=== PATIENT | female | born 1945 | race Caucasian/White ===

== ENCOUNTER 2022-02-03 19:04 | Inpatient (IN) | payer MEDICARE, OTHER ==
[~2022-02-03] VITALS: Ht 162.6 cm; Wt 51.3 kg
--- NOTE | 2022-02-03 19:28 | NUR ---
Patient BIB [facility] from home for c/o weakness and unable to ambulate that started 2 days ago. Blood Sugar in the field was 180. Blood Pressure SALON PROFESSIONAL was 86/50.
[2022-02-03] MEDS ORDERED: METO-356 PO (19:29)
[2022-02-03] MEDS ORDERED: NAPR-1009 PO (19:29)
[2022-02-03] MEDS ORDERED: PANT40TA49 PO (19:29)
[2022-02-03] MEDS ORDERED: ALEN70TA80 PO (19:29)
[2022-02-03] MEDS ORDERED: ASPI81TA31 PO (19:29)
[2022-02-03] MEDS ORDERED: ROSU20TA2 PO (19:29)
[2022-02-03] MEDS ORDERED: FERR325T28 PO (19:29)
[2022-02-03] MEDS ORDERED: FOLI1TAB94 PO (19:29)
--- NOTE | 2022-02-03 19:53 | NUR ---
Dr. Bearden on bedside for MSE.
[2022-02-03 19:54] LABS: HEMATOCRIT 25.2 % (31.2-41.9); MEAN CORPUSCULAR HEMOGLOBIN 25.1 uug (24.7-32.8); MEAN CORPUSCULAR VOLUME 74.4 fL (75.5-95.3); PLATELET COUNT (AUTO) 130 K/uL (179-408)
[2022-02-03 20:01] LABS: CARBON DIOXIDE 25 mmol/L (21-32); CHLORIDE 92 mmol/L (98-107); CREATININE 0.8 mg/dL (0.6-1.3); GLUCOSE 163 mg/dL (74-106); POTASSIUM 3.1 mmol/L (3.5-5.1); UREA NITROGEN, BLOOD 19 mg/dL (7-18)
[2022-02-03 20:08] LABS: ALANINE AMINOTRANSFERASE 42 U/L (14-59); ALKALINE PHOSPHATASE 64 U/L (50-136); ASPARTATE AMINOTRANSFERASE 36 U/L (15-37); BILIRUBIN,DIRECT 0.2 mg/dL (0.0-0.2); BILIRUBIN,TOTAL 0.6 mg/dL (0.2-1.0); TOTAL PROTEIN, SERUM 6.1 g/dL (6.4-8.2)
[2022-02-03 20:09] LABS: ETHANOL < 3 MG/DL (0-0)
--- NOTE | 2022-02-03 20:11 | NUR ---
Pt taken to CT via transport.
[2022-02-03 20:13] LABS: THYROID STIMULATING HORMONE 1.166 mIU/mL (0.358-3.740)
--- NOTE | 2022-02-03 20:28 | NUR ---
Back from CT.
[2022-02-03] MEDS ORDERED: IV NORMAL SALINE 500 ML IV ONE (20:30)
[2022-02-03 21:12] LABS: *BILIRUBIN,URIN NEGATIVE (NEGATIVE); *BLOOD, URINE 2+ (NEGATIVE); *CLARITY,URINE CLEAR (CLEAR); *COLOR,URINE YELLOW (YELLOW); *KETONES,URINE NEGATIVE (NEGATIVE); *UROBILINOGEN,URINE 0.2 E.U./dl (NORMAL); LEUKOCYTE ESTERASE ,URINE NEGATIVE (NEGATIVE); NITRITE, URINE NEGATIVE (NEGATIVE); PH,URINE 5.5 (5.0-8.0); UGLUCOSE NEGATIVE (NEGATIVE)
--- NOTE | 2022-02-03 21:13 | NUR ---
In and out catheterization done to obtain urine. Patient with 100cc kerri color urine output.
[2022-02-03] MEDS: MAGNESIUM SULFATE/D5W 100 ML IV SCH ×2 (21:24→21:47)
[2022-02-03 21:39] LABS: BACTERIA,URINE FEW /HPF (NONE SEEN); SQUAMOUS EPITHELIAL CELL,UR FEW /HPF (NONE SEEN); WBC,URINE 0-3 /HPF (0-3)
--- NOTE | 2022-02-03 22:02 | NUR ---
Epic panel call placed, spoke to Magy, she stated she will get a hold of Dr. Cabezas for admitting.
[2022-02-03] MEDS ORDERED: CEFEPIME HCL 1 G VIAL ONE (22:06)
[2022-02-03] MEDS ORDERED: POTASSIUM CHLORIDE 50 ML ONE (22:13)
[2022-02-03] MEDS ORDERED: POTASSIUM CHLORIDE 100 ML ONE (22:15)
[2022-02-03] MEDS ORDERED: CEFEPIME HCL 1 G in IV DEXTROSE 5% 50 ML IV ONE (22:15)
--- NOTE | 2022-02-03 22:15 | NUR ---
Dr. Bearden on panel call with Dr. Cabezas. Patient accepted for admission to Telemetry unit, Dx. Gen. weakness.
[2022-02-03] MEDS: POTASSIUM CHLORIDE 50 ML IV SCH ×2 (22:42→23:42)
--- NOTE | 2022-02-03 23:25 | NUR ---
Report given to tele unit CAROLINA Starr.
--- NOTE | 2022-02-04 00:30 | NUR ---
Pt. admitted to telemetry unit, room 309, under care of Dr. Cabezas. Belongs List completed.
[2022-02-04 00:56] VITALS: BP 113/61
[2022-02-04] MEDS: POTASSIUM CHLORIDE 50 ML IV SCH ×6 (01:17→12:09)
[2022-02-04] MEDS ORDERED: ONDANSETRON 4 MG/2 ML VIAL IV PRN (01:30)
[2022-02-04] MEDS ORDERED: IV NS 1000 ML 1,000 ML IV PRN (01:30)
[2022-02-04] MEDS ORDERED: REMEDY ESSENTIAL ZINC PASTE 113 GM TP PRN (01:30)
--- NOTE | 2022-02-04 01:30 | NUR ---
Admitted patient to tele accompanied by ER nurse via gurney. Patient awake alert and oriented x 1-2, able to relate needs to staff. In no acute distress, respiration even and unlabored. Afebrile. Abdomen soft to touch, non distended. IV access on left AC G#20 intact and patent with on going Kcl 2nd bag. Initial and full body assessment done. Skin intact with old scabs in BLE. Belongings list filled up. Safety precautions initiated. Call light place within easy reach, oriented to room. All needs attended. Continue to monitor.
[2022-02-04] MEDS: ENOXAPARIN SODIUM 40 MG/0.4 ML DISP.SYRIN SQ SCH ×2 (02:38→21:15)
[2022-02-04 04:49] VITALS: BP 116/61
[2022-02-04] MEDS: ACETAMINOPHEN 325 MG TABLET PO PRN ×2 (04:52→12:14)
[2022-02-04 06:05] LABS: HEMATOCRIT 21.7 % (31.2-41.9); MEAN CORPUSCULAR HEMOGLOBIN 25.5 uug (24.7-32.8); MEAN CORPUSCULAR VOLUME 73.2 fL (75.5-95.3); PLATELET COUNT (AUTO) 93 K/uL (179-408)
[2022-02-04 06:08] LABS: BILIRUBIN,TOTAL 0.6 mg/dL (0.2-1.0); CREATININE 0.6 mg/dL (0.6-1.3); MAGNESIUM 2.2 mg/dL (1.8-2.4); PHOSPHOROUS 1.3 mg/dL (2.5-4.9); TOTAL PROTEIN, SERUM 5.4 g/dL (6.4-8.2)
[2022-02-04] MEDS: PANTOPRAZOLE SODIUM 40 MG VIAL IV SCH (06:09)
[2022-02-04 06:17] LABS: POTASSIUM 2.8 mmol/L (3.5-5.1)
--- NOTE | 2022-02-04 06:30 | NUR ---
Lab called, patient is noted with low potassium 2.8. DEMETRIUS Booth informed with new order to administer potassium 10 meq x 5 bags.
[2022-02-04] MEDS: ASPIRIN 81 MG TAB.CHEW PO SCH (08:26)
[2022-02-04] MEDS: FERROUS SULFATE 325 MG TABEC PO SCH ×3 (08:27→16:19)
[2022-02-04] MEDS: FOLIC ACID 1 MG TABLET PO SCH (08:27)
[2022-02-04] MEDS: METOPROLOL SUCCINATE XL 25 MG TAB.SR.24H PO SCH (08:37)
--- NOTE | 2022-02-04 08:37 | NUR ---
PATIENT WENT TO THE BATHROOM AND BECAME VERY DIAPHORETIC GOING BACK TO BED SBP 86/57 HR 94. METOPROLOL HELD AND CLOSELY MONITORED
[2022-02-04 09:00] VITALS: BP 92/57
--- NOTE | 2022-02-04 09:30 | NUR ---
PATIENT REMAINS ALERT AND ORIENTED X3 SBP 92/57, HR 90. 2DECHO DONE EF OF 60, DENIES CHEST PAIN, O2 SAT RA 96%. CONTINUE TELE MONITORING ORDERED
[2022-02-04 11:11] VITALS: BP 94/61
--- NOTE | 2022-02-04 12:00 | NUR ---
RESTING COMFORTABLY NO SS OF DISTRESS BUT C/O GENERALIZE PAIN RELIEVE WITH TYLENOL. SR ON MONITOR
[2022-02-04] MEDS ORDERED: ACYC400T19 PO (12:04)
--- NOTE | 2022-02-04 14:31 | NUR ---
SEEN BY DR SANTOYO FOR FOLLOW--UP MADE AWARE OF LABS LOW K, LOW SODIUM SEE NOTES
[2022-02-04 15:07] VITALS: BP 93/50
[2022-02-04] MEDS ORDERED: SODIUM PHOSPHATE MM 15 MMOL in IV NORMAL SALINE 250 ML IV ONE (16:00)
[2022-02-04] MEDS: ACYCLOVIR 200 MG CAPSULE PO SCH (16:19)
[2022-02-04] MEDS ORDERED: ACYCLOVIR 400 MG TABLET PO SCH (17:00)
--- NOTE | 2022-02-04 18:02 | NUR ---
MORE ALERT AND VERBALLY RESPONSIVE, GOOD APPETITE WITH DINNER, FAMILY AT BEDSIDE ALL SUPPORTIVE WITH CARE SR ON MONITOR
--- NOTE | 2022-02-04 18:14 | NUR ---
SEEN BY DR SOFIA FOR NEURO CONSULT SEE NOTES
--- NOTE | 2022-02-04 19:18 | NUR ---
Received patient in bed awake, alert and oriented x 1. Respiration even and unlabored, no noted acute distress. Skin is dry and warm to touch, afebrile. No signs of bleeding noted related to use of lovenox. Bed in locked and low position. Call light within reach.
[2022-02-04 19:50] VITALS: BP 108/71
[2022-02-04] MEDS ORDERED: IV NS + KCL 40 MEQ 1000 ML BAG IV ONE ×2 (20:30→21:15)
[2022-02-04] MEDS: ATORVASTATIN 40 MG TABLET PO SCH (20:48)
[2022-02-04] MEDS ORDERED: POTASSIUM CHLORIDE 40 MEQ in IV NS 1000 ML 1,000 ML IV ONE (21:22)
[2022-02-04] MEDS ORDERED: IV NS + KCL 40 MEQ 1000 ML BAG 1,000 ML IV ONE (22:54)
[2022-02-05 00:17] VITALS: BP 130/70
[2022-02-05 04:22] VITALS: BP 135/80
[2022-02-05] MEDS: ACETAMINOPHEN 325 MG TABLET PO PRN ×2 (05:55→17:18)
[2022-02-05] MEDS: PANTOPRAZOLE SODIUM 40 MG VIAL IV SCH (06:00)
--- NOTE | 2022-02-05 06:36 | NUR ---
Patient slept well, no complain pain/discomfort. No acute distress noted. Left antecubital IV access intact and patent with IVF infusing well. Needs attended and anticipated. Call light place within easy reach.
[2022-02-05 07:05] LABS: HEMATOCRIT 22.6 % (31.2-41.9); MEAN CORPUSCULAR HEMOGLOBIN 25.4 uug (24.7-32.8); MEAN CORPUSCULAR VOLUME 72.8 fL (75.5-95.3); PLATELET COUNT (AUTO) 104 K/uL (179-408)
[2022-02-05 07:15] LABS: CARBON DIOXIDE 24 mmol/L (21-32); CHLORIDE 101 mmol/L (98-107); CHOLESTEROL 112 mg/dL (<200); CREATININE 0.5 mg/dL (0.6-1.3); GLUCOSE 152 mg/dL (74-106); HDL CHOLESTEROL 12 mg/dL (40-60); MAGNESIUM 2.2 mg/dL (1.8-2.4); PHOSPHOROUS 1.3 mg/dL (2.5-4.9); POTASSIUM 3.5 mmol/L (3.5-5.1); TRIGLYCERIDES 136 MG/DL (30-150); UREA NITROGEN, BLOOD 12 mg/dL (7-18)
[2022-02-05] MEDS: FOLIC ACID 1 MG TABLET PO SCH (08:25)
[2022-02-05] MEDS: FERROUS SULFATE 325 MG TABEC PO SCH ×3 (08:25→17:04)
[2022-02-05] MEDS: ASPIRIN 81 MG TAB.CHEW PO SCH (08:25)
[2022-02-05] MEDS: ACYCLOVIR 200 MG CAPSULE PO SCH ×2 (08:25→17:06)
[2022-02-05] MEDS: METOPROLOL SUCCINATE XL 25 MG TAB.SR.24H PO SCH (08:30)
[2022-02-05 08:41] VITALS: BP 136/74
--- NOTE | 2022-02-05 11:30 | NUR ---
Md made aware of patient lethargy and unclear speech. Patient is also diaphoretic this am. no SOB or s/s of pain. Patient is easily woken, pupils equal but sluggish. Skin is pale. patient is able to drink water and tolerate some apple sauce but only few teaspoons due to lethargy. MD made aware and assessed patient. Family aware of patient health status.
[2022-02-05] MEDS ORDERED: POTASSIUM PHOSPHATE MM 15 MMOL in IV NORMAL SALINE 250 ML IV ONE (12:30)
[2022-02-05 16:16] VITALS: BP 130/64
--- NOTE | 2022-02-05 19:37 | NUR ---
Patient remains lethargic with unclear speech. Skin is diaphoretic and pale. Dr. Dempsey made aware no further IV fluids, requested IV fluids from MD, patient is not eating or drinking. telemetry remains controlled AFIB, pulse 90's.
--- NOTE | 2022-02-05 19:40 | NUR ---
RECEIVED PATIENT IN BED, LETHARGIC AND UNCLEAR SPEECH. NOTED TO BE MUMBLING INCOHERENTLY. AWAKEN BY NAME AND LIGHT TOUCH. PT IS ON TELEMETRY, SHOWING SINUS RHYTHM. AWAIT MD DUMONT TO RESPOND REGARDING IV FLUIDS ORDER PATIENT HAS NOT BEEN EATING OR DRINKING. SAFETY PRECAUTIONS INITIATED. MONITORED CLOSELY.
[2022-02-05] MEDS: ATORVASTATIN 40 MG TABLET PO SCH (20:38)
[2022-02-05] MEDS: ENOXAPARIN SODIUM 40 MG/0.4 ML DISP.SYRIN SQ SCH (20:38)
[2022-02-05 20:43] VITALS: BP 109/65
--- NOTE | 2022-02-05 22:00 | NUR ---
PATIENT ATTACHED TO O2 VIA NASAL CANNULA, DELIVERING 2L, D/T O2 SAT OF 93%.
[2022-02-06] VITALS (8 sets, daily range): BP systolic 104–148; BP diastolic 59–78
[2022-02-06] MEDS: PANTOPRAZOLE SODIUM 40 MG VIAL IV SCH (06:14)
[2022-02-06 06:38] LABS: ALANINE AMINOTRANSFERASE 50 U/L (14-59); ALKALINE PHOSPHATASE 67 U/L (50-136); ASPARTATE AMINOTRANSFERASE 34 U/L (15-37); BILIRUBIN,TOTAL 0.8 mg/dL (0.2-1.0); CARBON DIOXIDE 25 mmol/L (21-32); CHLORIDE 104 mmol/L (98-107); CREATININE 0.5 mg/dL (0.6-1.3); GLUCOSE 125 mg/dL (74-106); MAGNESIUM 2.4 mg/dL (1.8-2.4); PHOSPHOROUS 1.8 mg/dL (2.5-4.9); POTASSIUM 3.5 mmol/L (3.5-5.1); TOTAL PROTEIN, SERUM 5.9 g/dL (6.4-8.2); UREA NITROGEN, BLOOD 16 mg/dL (7-18)
--- NOTE | 2022-02-06 06:43 | NUR ---
PATIENT SLEPT THROUGH THE NIGHT. AWAKEN WHEN CALLED BY NAME AND WITH LIGHT TOUCH. INCOHERENT MUMBLING NOTED. ON 2L O2 VIA NASAL CANNULA. IV ACCESS PATENT AND INTACT. NO IVF ORDERED. ORAL CARE DONE, SAFETY MEASURES MAINTAINED.
--- NOTE | 2022-02-06 08:00 | NUR ---
PATIENT SEEN AND EXAMINED BY PHYSICAL THERAPY WITH POOR ENDURANCE PATIENT UNABLE TO FOLLOW COMMANDS SHE IS CONFUSED AND DISORIENTED MUMBLES WHEN SPOKEN TO ALL NEEDS ANTICIPATED AND SATISFIED MAX ASSIST FOR ALL ADL.ON O2 AT 2L/M WITH NO SOB AT THIS TIME DIFFICULTY FEEDING HER KEEPS FOOD IN HER MOUTH AND NOT SWALLOWING WILL CONTINUE TO OBSERVE.
[2022-02-06] MEDS: FOLIC ACID 1 MG TABLET PO SCH (08:44)
[2022-02-06] MEDS: ASPIRIN 81 MG TAB.CHEW PO SCH (08:44)
[2022-02-06] MEDS: FERROUS SULFATE 325 MG TABEC PO SCH ×3 (08:44→16:12)
[2022-02-06] MEDS: ACYCLOVIR 200 MG CAPSULE PO SCH ×2 (08:44→16:13)
[2022-02-06] MEDS: METOPROLOL SUCCINATE XL 25 MG TAB.SR.24H PO SCH (08:45)
--- NOTE | 2022-02-06 11:06 | NUR ---
GOT AN ORDER FOR SWALLOW EVAL AND HAD THE SLT SEE PATIENT AND SHE STATED THAT PATIENT IS NOT AWAKE ENOUGH TO EAT STATED TO KEEP PATIENT NPO FOR NOW DR AVERY HERE AND NOTIFIED AND HE STATED WILL CALL PATIENTS DAUGHTER AND TALK TO HER TO DETERMINE NEXT PLAN OF CARE.
--- NOTE | 2022-02-06 11:26 | NUR ---
PATIENT SEEN BY DR KENYA SANTOYO AND HE CALLED AND SPOKE WITH PATIENTS DAUGHTER WITH NEW ORDERS AND NOTED
[2022-02-06] MEDS: IV D5/ 0.9% NACL 1,000 ML IV PRN (11:36)
[2022-02-06] MEDS ORDERED: POTASSIUM PHOSPHATE MM 15 MMOL in IV NORMAL SALINE 250 ML IV ONE (13:30)
--- NOTE | 2022-02-06 16:30 | NUR ---
NEW ORDER RECEIVED FROM DR SOFIA FOR MRI BRAIN WITHOUT CONTRAST BUT PATIENT ALREADY HAS AN ORDER FOR MRI OF THE BRAIN WITH AND WITHOUT CONTRAST MD STATED TO GO WITH THE PREVIOUS ORDER OF WITH AND WITHOUT CONTRAST AND NOTED PATIENTS SON AND DAUGHTER IN LAW PRASANNA HERE AND FILLED OUT THE MRI AND CONTRAST CHECK LIST AND FILED AWAITING FOR THE LOBSTER MAN TO CALL FOR THE APPOINTMENT.
--- NOTE | 2022-02-06 17:00 | NUR ---
AWAKE ATTEMPTS TO RESPOND WHEN SPOKE TO BUT HER SPEECH IS INCOHERENT MOVING LEFT ARM AND LEG BUT WHEN ASKED TO MOVE HER RIGHT ARM SHE IS UNABLE VERY FLACCID FACIAL HAS NO DROOP AT THIS TIME WILL CONTINUE TO OBSERVE.
--- NOTE | 2022-02-06 17:40 | NUR ---
CALL RECEIVED FROM DR PERRY WITH ORDERS FOR CTA ANGIO CT HEAD AND NECK BUT PATIENT IS ALLERGIC TO IODINE MD NOTIFIED WITH ORDER TO JUST DO CT HEAD AND NOTED.
--- NOTE | 2022-02-06 18:51 | NUR ---
RESULT OF CT HEAD RECEIVED AND CALLED TO DR DOMINGUEZ WITH NO NEW ORDERS AT THIS TIME STATED WILL TALK WITH DR ZAMBRANO AND WILL LET US KNOW.
--- NOTE | 2022-02-06 19:05 | NUR ---
CALL DR KENYA SANTOYO SPOKE WITH HIM RE RESULT OF THE CT HEAD WITH ORDER TO TRANSFER PATIENT TO ICU FOR CONTINUING CARE PREDATORY GAME HUNTER NOTIFIED OF THE NEED TO TRANSFER PATIENT TO ICU
--- NOTE | 2022-02-06 19:30 | NUR ---
received patient from [facility] telemetry /medical surgical patient no upgraded to ccu status , for brain hemorrhage plus infarct ct of the head without contrast .patient now in ccu1. spoked to patients son and daughter in law made aware patient is now in ccu c/o of patient changed in mental condition and also because of the ct of the brain results ,as per son :JULIA is on the phone now to talked with them advised son he can call us back here in ccu .
--- NOTE | 2022-02-06 19:45 | NUR ---
CALLED PATIENTS SON MAGNO AND MESSAGE LEFT ON HIS VOICE MAIL THAT PATIENT WILL BE TRANSFERING TO ICU FOR HIGHER LEVEL OF CARE.
--- NOTE | 2022-02-06 20:15 | NUR ---
patient open eyes to name able to moved left upper and left lower extremities slow and weak ,right upper and lower extremities flaccid withdraws to pain .pupils 3mm sluggishly reactive . no s/s of pain .
--- NOTE | 2022-02-06 20:30 | NUR ---
increase 02 nasal cannula to 3 liters, with 02 nasal cannula at 2 liters pts saturation only at 92% ,no at 3 liters 93% will continue to monitor .
[2022-02-06] MEDS: ATORVASTATIN 40 MG TABLET PO SCH (21:00)
[2022-02-06] MEDS: REMEDY ESSENTIAL ZINC PASTE 113 GM TOP SCH (21:16)
--- NOTE | 2022-02-06 23:13 | NUR ---
mrsa done to bilateral nares ccu protocol . on and off asleep but easily arousable to her name , patient open her eyes tries to talk but very weak and incomprehensible sounds speech in not clear .patient able to moved left upper and left lower voluntarily on her own but very weak ,right upper and lower extremities flaccid but at times patient able to moved right hand slow but not against resistance.no respiratory distress noted breathing even and unlabored rr 28 saturation 94 % on 02 nasal cannula at 3 l/min patient is a mouth breather .
[2022-02-07] VITALS (23 sets, daily range): BP systolic 105–152; BP diastolic 61–99
--- NOTE | 2022-02-07 00:46 | NUR ---
febrile temp via rectal 101.8 F,called to [facility] spoked to VICTOR MANUEL KRISHNAMURTHY INFORMATION SYSTEMS PROJECT MANAGER with orders . BLOOD CULTURE X2 AND TYLENOL SUPPOSITORY PRN FOR FEVER .
[2022-02-07] MEDS: ACETAMINOPHEN 650 MG SUPP.RECT RC PRN ×2 (00:57→22:17)
--- NOTE | 2022-02-07 01:05 | NUR ---
given Tylenol suppository for fever . applied ice packs to bilateral armpit and bilateral groin , placed cold wash cloth to patient forehead .
[2022-02-07 04:44] LABS: HEMATOCRIT 23.2 % (31.2-41.9); MEAN CORPUSCULAR HEMOGLOBIN 24.6 uug (24.7-32.8); MEAN CORPUSCULAR VOLUME 72.2 fL (75.5-95.3); PLATELET COUNT (AUTO) 137 K/uL (179-408)
[2022-02-07 05:10] LABS: MAGNESIUM 2.4 mg/dL (1.8-2.4); PHOSPHOROUS 2.5 mg/dL (2.5-4.9)
[2022-02-07] MEDS: IV D5/ 0.9% NACL 1,000 ML IV PRN (05:39)
[2022-02-07] MEDS: PANTOPRAZOLE SODIUM 40 MG VIAL IV SCH (06:07)
--- NOTE | 2022-02-07 06:26 | NUR ---
spoked with flash KRISHNAMURTHY SQUAD LEADER dictated blood culture results w/ gram positive cocci in clusters with order to start patient on vancomycin pharmacy to dose .
--- NOTE | 2022-02-07 07:20 | NUR ---
Received pt. AAOx1. responsive to verbal command and tracking right side flaccid. Hemodynamically stable, pupils CLARY. on NSR with sbp within desire limits. No respiratory distress noted Patient on NC 3 liters with saturation of 93% RR 8-12. IV line patent. Will continue to monitor.
[2022-02-07] MEDS: FERROUS SULFATE 325 MG TABEC PO SCH ×3 (08:00→16:59)
[2022-02-07 08:09] LABS: *BILIRUBIN,URIN NEGATIVE (NEGATIVE); *BLOOD, URINE 2+ (NEGATIVE); *CLARITY,URINE CLEAR (CLEAR); *COLOR,URINE YELLOW (YELLOW); *KETONES,URINE NEGATIVE (NEGATIVE); *UROBILINOGEN,URINE 0.2 E.U./dl (NORMAL); LEUKOCYTE ESTERASE ,URINE NEGATIVE (NEGATIVE); NITRITE, URINE NEGATIVE (NEGATIVE); UGLUCOSE NEGATIVE (NEGATIVE)
--- NOTE | 2022-02-07 08:15 | NUR ---
Neurologist Dr. Cruz in the unit to see and examine pt. report given orders for aspirin 325mg AK received and orders to have assigned attending to call him to discuss care plan.
[2022-02-07] MEDS: ACYCLOVIR 200 MG CAPSULE PO SCH ×2 (08:17→16:59)
[2022-02-07] MEDS: ASPIRIN 81 MG TAB.CHEW PO SCH (08:17)
[2022-02-07] MEDS: FOLIC ACID 1 MG TABLET PO SCH (08:17)
[2022-02-07] MEDS: VANCOMYCIN IV 750 MG in IV DEXTROSE 5% 250 ML IV SCH (08:18)
[2022-02-07] MEDS: REMEDY ESSENTIAL ZINC PASTE 113 GM TOP SCH ×2 (08:20→20:34)
--- NOTE | 2022-02-07 08:54 | NUR ---
A call from cctv technician from [facility] and at this time neurologist Dr. Cruz was called to clarify procedure and as stated by him procedure needed is "MRI brain without contrast & MRA brain without contrast". Mott called and informed.
--- NOTE | 2022-02-07 08:59 | NUR ---
As requested by [employer] patient is schedule to have MRI & MRA brain without contrast at 1230. manager rn case Sri Rodas informed to schedule transportation for this time. About 5 minutes later I was informed that ambulance services has no rn available and to speak with supervisor [employer] to arrange provision of ICU Sri Lab Intern [employer] informed and as stated "I'll give you and answer later we're about to start the daily meeting".
[2022-02-07] MEDS ORDERED: ASPIRIN 300 MG RECTAL SUPP RC SCH (09:00)
[2022-02-07 12:24] LABS: BACTERIA,URINE MODERATE /HPF (NONE SEEN); SQUAMOUS EPITHELIAL CELL,UR FEW /HPF (NONE SEEN); WBC,URINE 0-3 /HPF (0-3)
--- NOTE | 2022-02-07 12:39 | NUR ---
At this time pt. taken to [facility] via [facility] and accompanied by R.N. in shift. Upon arrival pt. underwent procedure and tolerated well. Patient back in the unit at 1415 vitals of: HR 117, 144/99 RR32 temp 99.6
--- NOTE | 2022-02-07 13:57 | NUR ---
WOUND CARE CONSULT: PT IS OFF UNIT AT THIS TIME. REVIEWED CHART, NURSING DOCUMENTATION AND PHOTOS WHICH INDICATE DRY SCABS TO LEFT LOWER LEG AND SCARRING/DISCOLORATION TO UPPER BACK AREA, PRESENT ON ADMISSION. PT HAS FIRST STEP CIRRUS LOW AIRLOSS MATTRESS. DISCUSSED SKIN PROTECTION WITH NURSING STAFF. MD IN AGREEMENT WITH PLAN OF CARE.
--- NOTE | 2022-02-07 14:25 | NUR ---
A call from radiologist Dr. Alyse Saravia with report on findings of MRI/MRA. and Neurologist Dr. Cruz called to be informed of findings.
--- NOTE | 2022-02-07 15:40 | NUR ---
A call back from Neurologist Dr. Cruz and at this time He requested to have pt's next of kin contact information. Information sent when R.N. back from lunch break. at 1540
--- NOTE | 2022-02-07 17:52 | NUR ---
Neurologist Dr. Cruz on the phone discussing pt's MRI/MRA results with pt's family especially addressing pt's daughter in law and son. Orders to provide them with a copy of mri/mra test results. copies provided to Mr. Hanson.
[2022-02-07] MEDS ORDERED: LABETALOL HCL 100 MG/20 ML VIAL IV PRN (18:45)
--- NOTE | 2022-02-07 19:30 | NUR ---
rounds made patient in bed open eyes spontaneously and also able to open eyes to speech /name pupils right and left size 2 mm sluggish reactive .patient tries to talk incomprehensible sound unclear , with draws to pain , alert name ,left upper and lower extremities moved but very weak and times patient able to grasp and follow commands using the left hand but very weak ,right extremities upper and lower flaccid patient able to moved not against gravity very weak .no respiratory distress noted tolerating 02 naasal cannula at 3 liter /min saturation 96% rr27 to 28 ,afebrile .st on the heart monitor tae 108.
[2022-02-07] MEDS: ATORVASTATIN 40 MG TABLET PO SCH (20:35)
--- NOTE | 2022-02-07 21:17 | NUR ---
given prn Tylenol c/o fever temp 99.6 F rectally .ice packs applied to bilateral groin and armpit ,cold wash cloth placed forehead . turned and reposition patient .offloaded back with pillow.
[2022-02-08] VITALS (23 sets, daily range): BP systolic 107–155; BP diastolic 53–90
[2022-02-08] MEDS: IV D5/ 0.9% NACL 1,000 ML IV PRN ×2 (02:08→17:06)
[2022-02-08 05:11] LABS: MEAN CORPUSCULAR HEMOGLOBIN 24.7 uug (24.7-32.8); MEAN CORPUSCULAR VOLUME 72.4 fL (75.5-95.3); PLATELET COUNT (AUTO) 185 K/uL (179-408)
[2022-02-08 05:15] LABS: CREATININE 0.8 mg/dL (0.6-1.3); POTASSIUM 3.3 mmol/L (3.5-5.1)
[2022-02-08 05:18] LABS: MAGNESIUM 2.7 mg/dL (1.8-2.4); PHOSPHOROUS 2.7 mg/dL (2.5-4.9)
[2022-02-08] MEDS: PANTOPRAZOLE SODIUM 40 MG VIAL IV SCH (06:00)
[2022-02-08] MEDS: FERROUS SULFATE 325 MG TABEC PO SCH ×3 (08:00→17:00)
[2022-02-08] MEDS: FOLIC ACID 1 MG TABLET PO SCH (09:00)
[2022-02-08] MEDS ORDERED: ASPIRIN 81 MG TAB.CHEW PO SCH (09:00)
[2022-02-08] MEDS: ACYCLOVIR 200 MG CAPSULE PO SCH ×2 (09:00→17:00)
[2022-02-08] MEDS: VANCOMYCIN IV 750 MG in IV DEXTROSE 5% 250 ML IV SCH (09:05)
[2022-02-08] MEDS: POTASSIUM CHLORIDE 50 ML IV SCH ×2 (09:14→10:40)
[2022-02-08] MEDS: REMEDY ESSENTIAL ZINC PASTE 113 GM TOP SCH ×2 (09:15→21:32)
--- NOTE | 2022-02-08 11:20 | NUR ---
Echo done at bedside Jere reported to Dr. Delvalle of results and bubble study done too.
--- NOTE | 2022-02-08 12:30 | NUR ---
Joanan at bedside spoke to Son regarding prognosis.
--- NOTE | 2022-02-08 20:00 | NUR ---
patient son came and visited patient with and pts grandson as per son he will call the hospice senior outside sales representative christel or sometime union steward tomorrow..
[2022-02-08] MEDS: ATORVASTATIN 40 MG TABLET PO SCH (21:00)
[2022-02-08] MEDS: CEFAZOLIN 2 G in IV DEXTROSE 5% 100 ML IV SCH ×2 (22:00→23:44)
[2022-02-08] MEDS ORDERED: CEFAZOLIN 1 G VIAL ONE (23:06)
--- NOTE | 2022-02-08 23:20 | NUR ---
Assumed care of patient. Report received from Gwen FIGUEROA. Pt is resting in bed, respirations equal and unlabored. Patrick draining to gravity. New IV placed on L wrist 20g, running ordered fluids, tolerating all meds well. Pt is ST on monitor, 115 bpm. Rectal temp taken, 100.7, Tylenol suppository given. Turned and reposited for comfort. No distress noted at this time.
[2022-02-08] MEDS: ACETAMINOPHEN 650 MG SUPP.RECT RC PRN (23:38)
[2022-02-09] VITALS (14 sets, daily range): BP systolic 72–120; BP diastolic 41–57
[2022-02-09 05:25] LABS: HEMATOCRIT 29.2 % (31.2-41.9); MEAN CORPUSCULAR HEMOGLOBIN 24.1 uug (24.7-32.8); MEAN CORPUSCULAR VOLUME 72.6 fL (75.5-95.3); PLATELET COUNT (AUTO) 210 K/uL (179-408)
[2022-02-09 05:38] LABS: CARBON DIOXIDE 25 mmol/L (21-32); CHLORIDE 122 mmol/L (98-107); CREATININE 1.6 mg/dL (0.6-1.3); GLUCOSE 169 mg/dL (74-106); MAGNESIUM 2.7 mg/dL (1.8-2.4); PHOSPHOROUS 2.4 mg/dL (2.5-4.9); POTASSIUM 3.3 mmol/L (3.5-5.1); UREA NITROGEN, BLOOD 56 mg/dL (7-18)
--- NOTE | 2022-02-09 06:19 | NUR ---
Resting in bed, no distress noted. Pt lethargic, grimaces to painful stimuli. On 3L NC satting 92-95%, tolerating well. Patrick draining to gravity. ST on monitor. Will endorse to oncoming shift.
--- NOTE | 2022-02-09 06:37 | NUR ---
Notified Bert Castro NP of critical Sodium 156, no new orders at this time.
[2022-02-09] MEDS: IV D5/ 0.9% NACL 1,000 ML IV PRN (06:46)
[2022-02-09] MEDS: PANTOPRAZOLE SODIUM 40 MG VIAL IV SCH (06:53)
--- NOTE | 2022-02-09 07:19 | NUR ---
Report given to Cecilia CAROLINA
[2022-02-09] MEDS: POTASSIUM CHLORIDE 50 ML IV SCH ×2 (07:45→08:58)
[2022-02-09] MEDS: FERROUS SULFATE 325 MG TABEC PO SCH (08:00)
[2022-02-09] MEDS ORDERED: CEFAZOLIN 2 G in IV DEXTROSE 5% 100 ML IV SCH ×2 (08:00→09:00)
[2022-02-09] MEDS: ACYCLOVIR 200 MG CAPSULE PO SCH (09:00)
[2022-02-09] MEDS: FOLIC ACID 1 MG TABLET PO SCH (09:00)
[2022-02-09] MEDS: REMEDY ESSENTIAL ZINC PASTE 113 GM TOP SCH (09:01)
--- NOTE | 2022-02-09 09:29 | NUR ---
MAURICIO Sears seen the patient. Patient is on NC at 3L, saturating at 90-92% but breathing thru her mouth, per HOT DOG VENDOR, change NC to mask. Patient is saturating at 94-95% on mask.
--- NOTE | 2022-02-09 11:21 | NUR ---
Patient is admitted to Hospice, DNR and comfort measures only. May call [facility] for any changes at [phone]. All orders carried out. will continue to monitor and provide comfort care. Consents in chart.
[2022-02-09] MEDS: MORPHINE SULFATE PF IV DRIP 100 MG in IV DEXTROSE 5% 96 ML IV PRN (12:23)
--- NOTE | 2022-02-09 17:40 | NUR ---
Morphine drip was started at noon at 1mg/hr as ordered. Patient is now on 5mg/hr. Comfortable. not in any distress. on 2L via NC. The son is at bedside.
--- NOTE | 2022-02-09 18:11 | NUR ---
Noted with 50cc urine output for the whole shift. latest vital signs as follow: PB 83/45, RR31, HR 108, O2 sat 95% at 2L via NC. Comfortable. no distress identified.
--- NOTE | 2022-02-09 19:36 | NUR ---
Endorsed to [facility] unit. Patient is comfortable. IV site intact. Morphine running at 5mg/hr as ordered. No distress identified.
--- NOTE | 2022-02-09 19:40 | NUR ---
Pt in bed, family at bedside. Respirations unlabored, cap refill < 3 seconds. PERRLA. IV site is patent and running Morphine at 5mg/hour. No distress is noted at this time.
--- NOTE | 2022-02-09 21:15 | NUR ---
Oral care and skin care provided. Patient turned and repositioned. Family at bedside. No distress noted, respirations unlabored.
--- NOTE | 2022-02-10 08:00 | NUR ---
On Morphine drip at 5mg/hr. O2 at 1L/NC. Son at bedside.
--- NOTE | 2022-02-10 09:00 | NUR ---
Awake, alert, aphasic, follows command, calm and cooperative with care. Titrated to room air with O2 sat of 93%. Not in distress. Afebrile. Addendum: 02/10/22 at 1850 by JASS KUHN RN not for this patient
[2022-02-10] MEDS: MORPHINE SULFATE PF IV DRIP 100 MG in IV DEXTROSE 5% 96 ML IV PRN (09:57)
--- NOTE | 2022-02-10 18:51 | NUR ---
Morphine drip infusing. Son at bedside
[2022-02-10 20:00] VITALS: BP 70/36
--- NOTE | 2022-02-10 20:00 | NUR ---
MORPHINE DRIP INFUSING AT 5MG/HR, COVERED PER MANAGER OF EMPLOYEE RELATIONS. FAMILY AT BEDSIDE. PATIENT ON O2 1L FOR COMFORT. WILL CONTINUE TO MONITOR AND ASSESS.
[2022-02-11] MEDS: MORPHINE SULFATE PF IV DRIP 100 MG in IV DEXTROSE 5% 96 ML IV PRN ×2 (06:19→17:59)
--- NOTE | 2022-02-11 08:00 | NUR ---
RECEIVED PATIENT FROM PM SHIFT. MORPHINE DRIP INFUSING AT 5MG/HR. FAMILY AT BEDSIDE. PATIENT IS ON O2 1L FOR COMFORT. WILL CONTINUE TO MONITOR AND ASSESS.
[2022-02-11 11:32] VITALS: BP 71/32
--- NOTE | 2022-02-11 15:09 | NUR ---
HOSPICE NURSE RIVAS FROM [facility] CAME, SPOKE TO ME REGARDING ANY UPDATES ON THE PATIENT. PATIENT IS ON 5 ML/HR MORPHINE DRIP, NO DISTRESS NOTED FAMILY AT BEDSIDE.
--- NOTE | 2022-02-11 16:04 | NUR ---
PATIENTS RESPIRATION ARE CURRENTLY 40 RESP PER MIN. FAMILY IS AT BEDSIDE AND THINK THAT SHE IS STILL COMFORTABLE. NO DISTRESS NOTED IN PATIENT.
--- NOTE | 2022-02-11 21:43 | NUR ---
received patient on Morphine drip running at 6ml/hr. increased dose to 7ml/hr for comfort measure at 2100H. will continue to provide comfort care.
--- NOTE | 2022-02-12 03:45 | NUR ---
Increased Morphine drip to 8mg/hr for comfort measures as ordered. will continue to provide comfort care. son at bedside.
--- NOTE | 2022-02-12 07:22 | NUR ---
increased drip to 9mg/hr for comfort. RR 44. will endorse.
[2022-02-12] MEDS: MORPHINE SULFATE PF IV DRIP 100 MG in IV DEXTROSE 5% 96 ML IV PRN ×2 (07:54→19:46)
[2022-02-12 11:00] VITALS: BP 91/34
[2022-02-12 16:00] VITALS: BP 82/31
--- NOTE | 2022-02-12 19:10 | NUR ---
RECD PT IN BED, COMFORT MEASURE OBSERVED AND MAINTAINED. STILL ON MORPHINE DRIP AT 9 MG/HR. APPEARS COMFORTABLE, NO FACIAL GRIMACE NOTED. ORAL AND EYE CARE RENDERED. SON AT BEDSIDE. ACTIVE LISTENING PROVIDED .KEPT WARM AND COMFORTABLE.NEEDS ATTENDED TO.
--- NOTE | 2022-02-13 | NUR ---
MORPHINE DRIP STILL INFUSING,,RESPIRATORY RATE SLOWING DOWN.
--- NOTE | 2022-02-13 03:52 | NUR ---
REMAINS ON MORPHINE DRIP, RESPIRATION UNLABORED, KEPT WARM AND DRY. SON AT BEDSIDE.CONTINUE TO PROVIDE COMFORT MEASURES.
[2022-02-13] MEDS: MORPHINE SULFATE PF IV DRIP 100 MG in IV DEXTROSE 5% 96 ML IV PRN ×2 (06:50→06:55)
--- NOTE | 2022-02-13 08:00 | NUR ---
Pt apnic for 5 minutes. Pupils flexed and dilated. No audible heart tones abreath sound. No palpable pulses for 1 minute . No corneal reflexes. Pt pronounced a@800 am. Hospice company to call mortuary and notify primary doctor. Called [facility] #[id number] spoke with rep lorna Queen Notified electric motor repair supervisor of . Awaiting when mortuary to picker tender patient.
--- NOTE | 2022-02-13 08:30 | NUR ---
Noted Son at bedside Bassam taking off his mothers yellow ring.
--- NOTE | 2022-02-13 11:00 | NUR ---
Pt sent to [facility] as mortuary is still not able to moss picker patients body. Body tagged on toes, outside of the bag and left wrist. Called Marilia notified that there are clothes left in the room per russ (son ) states that he will moss picker clothes later on the day. Clothes put behind door of room in front of 3rd floor secretary board of commissioners.
--- NOTE | 2022-02-14 15:45 | NUR ---
Marichuy daughter viktoriya called in states that we can disposed of the clothings and shoes
== END 2022-02-09 19:09 | disposition hospice, inpatient (51) | DRG 871 ==
LOC: ER 19:07 → TELE3 02-04 00:13 → CCU 02-06 19:55 → HOSPICE3 02-09 19:10 → CCU 02-09 19:10 → UNDODISIN 02-13 08:00
PROVIDERS: ATTEND Nurse Practitioner Acute Care
DX: A41.01 Sepsis due to Methicillin susceptible Staphylococcus aureus (principal); I33.0 Acute and subacute infective endocarditis; I63.9 Cerebral infarction, unspecified; I60.9 Nontraumatic subarachnoid hemorrhage, unspecified; E87.1 Hypo-osmolality and hyponatremia; C85.90 Non-Hodgkin lymphoma, unspecified, unspecified site; I76 Septic arterial embolism; N17.9 Acute kidney failure, unspecified; R53.1 Weakness; E87.6 Hypokalemia; E86.1 Hypovolemia; R29.723 NIHSS score 23; B95.61 Methicillin susceptible Staphylococcus aureus infection as the cause of diseases classified elsewhere; D50.9 Iron deficiency anemia, unspecified; E83.39 Other disorders of phosphorus metabolism; I10 Essential (primary) hypertension; Z20.822 Contact with and (suspected) exposure to COVID-19; Z88.0 Allergy status to penicillin; Z88.2 Allergy status to sulfonamides; D64.9 Anemia, unspecified; E78.5 Hyperlipidemia, unspecified; I34.0 Nonrheumatic mitral (valve) insufficiency; I35.0 Nonrheumatic aortic (valve) stenosis; Z51.5 Encounter for palliative care; R40.2362 Coma scale, best motor response, obeys commands, at arrival to emergency department; R40.2142 Coma scale, eyes open, spontaneous, at arrival to emergency department; R40.2252 Coma scale, best verbal response, oriented, at arrival to emergency department
CPT/HCPCS: 36415; 70030-TC; 70450; 70551; 71045; 72125; 83550; 83605; 83735; 83935; 84100; 84300; 84443; 84484; 85025; 87040; 87077; 87086; 93005; 93307; 97161; A4663; A6209; C1758; C9113; G0378; G0480; J0690; J0692; J1650; J2274; J3370; J3475; J3480; J3490; J7040; J7042; J7050

== ENCOUNTER 2022-02-09 19:10 | Inpatient (IN) | payer OTHER ==
[~2022-02-09 19:10] MED LIST: ACYC400T19 PO; ALEN70TA80 PO; ASPI81TA31 PO; FERR325T28 PO; FOLI1TAB94 PO; METO-356 PO; NAPR-1009 PO; PANT40TA49 PO; ROSU20TA2 PO
== END 2022-02-13 08:00 | DRG 951 ==
LOC: HOSPICE3 19:10
PROVIDERS: ADMIT Nurse Practitioner Acute Care; ATTEND Nurse Practitioner Acute Care
DX: Z51.5 Encounter for palliative care (principal); I60.8 Other nontraumatic subarachnoid hemorrhage; I63.40 Cerebral infarction due to embolism of unspecified cerebral artery; I63.441 Cerebral infarction due to embolism of right cerebellar artery; A41.01 Sepsis due to Methicillin susceptible Staphylococcus aureus; I76 Septic arterial embolism; Z66 Do not resuscitate; G40.909 Epilepsy, unspecified, not intractable, without status epilepticus; I10 Essential (primary) hypertension; E78.5 Hyperlipidemia, unspecified; I08.0 Rheumatic disorders of both mitral and aortic valves; Z85.72 Personal history of non-Hodgkin lymphomas; D64.9 Anemia, unspecified; Z88.0 Allergy status to penicillin; Z88.2 Allergy status to sulfonamides; Z88.8 Allergy status to other drugs, medicaments and biological substances; Z91.048 Other nonmedicinal substance allergy status
CPT/HCPCS: G0378